=== PATIENT | female | born 1975 | race Caucasian/White ===

== ENCOUNTER 2016-07-30 23:10 | Inpatient (IN) | payer MEDICAID, OTHER ==
[~2016-07-30] VITALS: Ht 152.4 cm; Wt 80.8 kg
[2016-07-30 23:41] VITALS: Ht 152.4 cm; Wt 80.8 kg
[2016-07-30 23:42] VITALS: BP 102/64; PULSE 97; RESP 18
[2016-07-30] MEDS ORDERED: PREN-93 PO (23:44)
[2016-07-30] MEDS ORDERED: LACTATED RINGER'S 1,000 ML IV PRN (23:52)
[2016-07-31] MEDS ORDERED: BUTORPHANOL 2 MG INJ IV PRN ×2
[2016-07-31] MEDS ORDERED: METHYLERGONOVINE 0.2 MG INJ IM PRN
[2016-07-31] MEDS ORDERED: LIDOCAINE 1% (MPF) 30 ML INJ INJ PRN
[2016-07-31] MEDS ORDERED: CARBOPROST 250 MCG INJ IM PRN
[2016-07-31] MEDS ORDERED: OXYTOCIN 30 UNITS/LR 500 ML IV SCH
[2016-07-31] MEDS ORDERED: AMPICILLIN 2 GM/NS (PMX) 100 ML IV ONE
[2016-07-31] MEDS ORDERED: MISOPROSTOL 200 MCG TAB PR PRN
--- NOTE | 2016-07-31 00:26 | HP ---
Date/Time of Note Date/Time of Note DATE: 07/31/16 TIME: 00:23 OB - History Hx of Present Free Text/Dictation 40 yo P4 @ 36+ wks presents in active labor w SROM good FM, no VB, +ctx, +LOF Past Family/Social History * Past Medical, Surgical, Family and Obstetric Histories reviewed from chart. OB Admission Exam Vital Signs Vital Signs Vital Signs Date Time Temp Pulse Resp B/P Pulse Ox O2 Delivery O2 Flow Rate FiO2 07/30/16 23:42 98.8 97 18 102/64 Room Air Physical Exam HEENT: WNL Cervical Dilatation: 5cm Effacement: 75% Station: -2 Membranes: Ruptured Amniotic Fluid: Clear Accelerations: Accelerations Present Decelerations: No Decelerations Varibility: Moderate Contractions on Admission: < 5 Minutes Apart Intensity: Moderate OB Assessment/Plan Other Assessment: 40 yo P4 @ term, w 4 prior , in active labor w SROM - care was w Dr. Warren, but pre- record unavailable on admission - reassuring status -gbs uknown Other plan: admit to L&D amp for uknown GBS, pre-term anticipate CA MONTELONGO MD July 31, 2016 00:26
[2016-07-31] MEDS: LACTATED RINGER'S 1,000 ML IV SCH ×2 (00:28→07:44)
[2016-07-31 00:57] LABS: ADD SCAN DIFF NO
[2016-07-31 01:03] LABS: BASOPHILS % 0.2 % (0.0-2.0); EOSINOPHILS % 0.2 % (0.0-7.0); HEMATOCRIT 40.3 % (37.0-47.0); HEMOGLOBIN 13.3 g/dl (12.0-16.0); LYMPHOCYTES # 1.5 10^3/ul (0.8-2.9); LYMPHOCYTES % 11.9 % (15.0-51.0); MEAN CORPUSCULAR HEMOGLOBIN 29.4 pg (29.0-33.0); MEAN PLATELET VOLUME 12.3 fl (7.4-10.4); MONOCYTE # 0.6 10^3/ul (0.3-0.9); MONOCYTES % 4.5 % (0.0-11.0); NEUTROPHIL # 10.3 10^3/ul (1.6-7.5); NEUTROPHILS % 82.9 % (39.0-77.0); PLATELET COUNT 178 10^3/UL (140-415); RED BLOOD COUNT 4.53 10^6/ul (4.20-5.40); RED CELL DISTRIBUTION WIDTH 14.3 % (11.5-14.5); WHITE BLOOD COUNT 12.5 10^3/ul (4.8-10.8)
[2016-07-31 01:19] LABS: ADD UMIC YES; URINE BILIRUBIN (Dip) NEGATIVE (NEGATIVE); URINE BLOOD (Dip) 2+ (NEGATIVE); URINE COLOR LT. YELLOW (YELLOW); URINE GLUCOSE (Dip) NEGATIVE (NEGATIVE); URINE KETONES (Dip) NEGATIVE (NEGATIVE); URINE LEUKOCYTE ESTERASE (Dip) 1+ (NEGATIVE); URINE NITRITE (Dip) NEGATIVE (NEGATIVE); URINE TOTAL PROTEIN (Dip) NEGATIVE (NEGATIVE); URINE UROBILINOGEN (Dip) 0.2 E.U./dL (0.1-1.0)
[2016-07-31 01:25] LABS: INR 0.94; PROTIME 12.6 Sec (12.2-14.2)
[2016-07-31 01:26] LABS: PARTIAL THROMBOPLASTIN TIME 29.4 Sec (25.0-35.0)
[2016-07-31 01:33] LABS: ALANINE AMINOTRANSFERASE 27 IU/L (13-69); ALBUMIN 3.4 g/dl (3.3-4.9); ALBUMIN/GLOBULIN RATIO 0.89; ALKALINE PHOSPHATASE 562 IU/L (42-121); ANION GAP 11 (8-16); ASPARTATE AMINO TRANSFERASE 22 IU/L (15-46); BILIRUBIN,INDIRECT 0.3 mg/dl (0-1.1); BILIRUBIN,TOTAL 0.3 mg/dl (0.2-1.3); BLOOD UREA NITROGEN 11 mg/dl (7-20); CALCIUM 8.8 mg/dl (8.4-10.2); CARBON DIOXIDE 21 mmol/L (21-31); CHLORIDE 105 mmol/L (97-110); CREATININE 0.47 mg/dl (0.44-1.00); GLUCOSE 90 mg/dl (70-220); POTASSIUM 4.1 mmol/L (3.5-5.1); SODIUM 133 mmol/L (135-144); TOTAL PROTEIN 7.2 g/dl (6.1-8.1)
[2016-07-31] MEDS: LACTATED RINGER'S 1,000 ML IV* SCH ×2 (01:49→09:49)
--- NOTE | 2016-07-31 01:49 | LDN ---
Date/Time of Note Date/Time of Note DATE: 07/31/16 TIME: 01:19 Delivery Summary 40 yo P4 s/p of live female , 7lbs 3 oz, 9/9 no nuchal cord intact perineum placenta delivered spontaneously Weeks of Gestation 37 Placenta Delivered: Spontaneously Episiotomy: No Anesthesia type: None Estimated blood loss: 400 Sponge & Needle done & correct: Yes All needle counts correct: Yes Any foreign bodies felt in the: No Problems: CA MONTELONGO MD July 31, 2016 01:49
--- NOTE | 2016-07-31 01:52 | RADRPT ---
PROCEDURE: ULTRASOUND OBSTETRICAL CLINICAL INDICATION: 40 year-old female with contractions for a position. TECHNIQUE: Multiple sonographic images of the pelvis were obtained. The images were reviewed on a PACS workstation. COMPARISON: No prior studies are available for comparison. FINDINGS: The cervix is not well visualized. There is a single viable intrauterine gestation. Cardiac activit y is present with 141 beats per minute. There is a vertex presentation. The placenta is posterior. T here is no evidence for an abruption or placenta previa. IMPRESSION: Single viable intrauterine gestation with vertex presentation. .Chaka Hussein MD, Date Time Electronically viewed and signed by .Chaka Hussein MD, on 07/31/2016 01:52 .Marcelo/
[2016-07-31] MEDS ORDERED: LANOLIN 7 GM TUBE TOP PRN (02:00)
[2016-07-31] MEDS ORDERED: WITCH HAZEL/GLYCERIN PAD PR PRN (02:00)
[2016-07-31] MEDS ORDERED: OXYTOCIN 30 UNITS/LR 500 ML IV PRN ×2 (02:00)
[2016-07-31] MEDS ORDERED: DIPHENHYDRAMINE 25 MG CAP PO PRN (02:00)
[2016-07-31 02:05] LABS: BACTERIA,URINE OCCASIONAL; SQUAMOUS EPITHELIAL CELL,UR FEW
[2016-07-31] MEDS: OXYTOCIN 30 UNITS/LR 500 ML IV SCH ×2 (02:34→06:28)
[2016-07-31 03:20] VITALS: BP 140/78; PULSE 72; RESP 20
[2016-07-31] MEDS ORDERED: AMPICILLIN 1 GM/NS (PMX) 50 ML IV SCH (04:00)
[2016-07-31 05:00] VITALS: BP 119/74; PULSE 77; RESP 18
[2016-07-31] MEDS: IBUPROFEN 800 MG TAB PO SCH ×4 (05:05→23:30)
[2016-07-31 08:15] VITALS: BP 118/69; PULSE 68; RESP 18
[2016-07-31] MEDS: SENNA/DOCUSATE NA (8.6MG/50MG) TAB PO SCH ×2 (10:17→21:54)
[2016-07-31 12:53] VITALS: BP 96/58; PULSE 61; RESP 19
[2016-07-31 16:00] VITALS: BP 134/61; PULSE 71; RESP 16
[2016-07-31 20:05] VITALS: BP 113/58; PULSE 72; RESP 18
[2016-08-01 04:10] VITALS: BP 118/65; PULSE 70; RESP 18
[2016-08-01] MEDS: IBUPROFEN 800 MG TAB PO SCH ×3 (05:15→17:47)
[2016-08-01 08:00] VITALS: BP 99/50; PULSE 70; RESP 18
[2016-08-01 08:00] LABS: HEMATOCRIT 35.7 % (37.0-47.0); HEMOGLOBIN 11.5 g/dl (12.0-16.0)
[2016-08-01] MEDS: SENNA/DOCUSATE NA (8.6MG/50MG) TAB PO SCH ×2 (09:32→21:00)
[2016-08-01 12:01] LABS: RUBELLA ANTIBODY - IGG <0.90 index
[2016-08-01] MEDS: IBUPROFEN 600 MG TAB PO PRN ×2 (12:12→23:53)
--- NOTE | 2016-08-01 12:27 | PN ---
Date/Time of Note Date/Time of Note DATE: 08/01/16 TIME: 12:24 OB Subjective Subjective Subjective day 1 Afebrile VSs abdomen soft uterus for lochia normal extremity normal, patient had a contaminated urine order to repeat clean-catch urine plan pending results OB Assessment/Plan Plan: Expectant Management EZEKIEL GARCIA MD August 01, 2016 12:27
[2016-08-01 12:42] LABS: ADD UMIC YES; URINE BILIRUBIN (Dip) NEGATIVE (NEGATIVE); URINE BLOOD (Dip) 3+ (NEGATIVE); URINE COLOR LT. YELLOW (YELLOW); URINE GLUCOSE (Dip) NEGATIVE (NEGATIVE); URINE KETONES (Dip) NEGATIVE (NEGATIVE); URINE LEUKOCYTE ESTERASE (Dip) 1+ (NEGATIVE); URINE NITRITE (Dip) NEGATIVE (NEGATIVE); URINE TOTAL PROTEIN (Dip) NEGATIVE (NEGATIVE); URINE UROBILINOGEN (Dip) 0.2 E.U./dL (0.1-1.0)
[2016-08-01 12:52] LABS: BACTERIA,URINE FEW
[2016-08-01 15:35] VITALS: BP 98/63; PULSE 75; RESP 16
[2016-08-01 20:00] VITALS: BP 119/57; PULSE 74; RESP 20
[2016-08-02] MEDS: IBUPROFEN 800 MG TAB PO SCH ×3 (00:15→12:16)
[2016-08-02 04:13] VITALS: BP 111/72; PULSE 72; RESP 20
[2016-08-02 07:45] VITALS: BP 128/64; PULSE 78; RESP 18
[2016-08-02] MEDS: SENNA/DOCUSATE NA (8.6MG/50MG) TAB PO SCH (09:36)
--- NOTE | 2016-08-02 10:11 | PD.PPDC ---
MANAGER MUSIC Discharge Instruction Condition Patient Condition: Good Diet Diet: Resume Regular Diet Activity/Restrictions Activity: Normal Activity May Shower Restrictions: No Exercising No Lifting No Driving No Sexual Activity Nothing in the Vagina No 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
--- NOTE | 2016-08-02 10:13 | DS ---
Date/Time of Note Date/Time of Note DATE: 08/02/16 TIME: 10:12 Discharge Summary Admission/Discharge Info Admit Date/Time July 30, 2016 at 23:57 Discharge Date/Time August 02, 2016 at 10 AM Final Diagnosis Post normal vaginal delivery Patient Condition: Good Procedures Normal spontaneous vaginal delivery Hx of Present Illness Term Hospital Course Uneventful satisfactory Home Meds Reported Medications Vit No.124/Iron/FA ( Vitamin Tablet) 1 Each Tablet, 1 EACH PO, TAB 07/30/16 Follow-up Plan instructions given recommended appointment in 2 weeks to be seen at the office Pending Labs Laboratory Tests Test 08/01/16 12:10 Urine Color LT. YELLOW (YELLOW) Urine Clarity CLEAR (CLEAR) Urine pH 6.5 (5.0-9.0) Urine Specific [place] <=1.005 (1.003-1.030) Urine Ketones NEGATIVE (NEGATIVE) Urine Nitrite NEGATIVE (NEGATIVE) Urine Bilirubin NEGATIVE (NEGATIVE) Urine Urobilinogen 0.2 E.U./dL (0.1-1.0) Urine Leukocyte Esterase 1+ (NEGATIVE) Urine Microscopic RBC 10-25/HPF (0) Urine Microscopic WBC 2-5/HPF (0) Urine Epithelial Cells FEW Urine Bacteria FEW Urine Hemoglobin 3+ (NEGATIVE) Urine Glucose NEGATIVE% (NEGATIVE) Urine Total Protein NEGATIVE (NEGATIVE) EZEKIEL GARCIA MD August 02, 2016 10:13
== END 2016-08-02 16:08 | disposition home or self-care (01) | DRG 775 ==
LOC: L-D 23:10 → OBT 23:10 → L-D 23:57 → PP1 07-31 03:05
PROVIDERS: ADMIT Obstetrics & Gynecology; ATTEND Obstetrics & Gynecology
PROC: 10E0XZZ Delivery of Products of Conception, External Approach (ICD-10-PCS; principal; 2016-07-31)
DX: O60.14X0 Preterm labor third trimester with preterm delivery third trimester, not applicable or unspecified (principal); Z37.0 Single live birth; Z3A.36 36 weeks gestation of pregnancy
CPT/HCPCS: 36415; 76815; 80053; 81001; 81003; 85014; 85018; 85025; 85610; 85730; 86592; 86703; 86762; 86900; 86901; 87086; 87340; G0463; J2210; J2590; J7120

== ENCOUNTER 2016-10-28 09:20 | Day surgery (SDC) | payer OTHER ==
[~2016-10-28] VITALS: Ht 153.7 cm; Wt 78.0 kg
[2016-10-28] VITALS (9 sets, daily range): BP systolic 119–138; BP diastolic 56–69; PULSE 68–76; RESP 15–23; Ht 153.7 cm; Wt 78.0 kg
[~2016-10-28 09:20] MED LIST: PREN-93 PO; ROCURONIUM 50 MG INJ ONE; SUCCINYLCHOLINE CHLORIDE 100 MG/5 ML SYG IV ONE
[2016-10-28] MEDS ORDERED: FER325 PO (09:51)
[2016-10-28] MEDS ORDERED: BUPIVACAINE 0.25%/EPI (SDV) 30 ML INJ ONE (12:04)
[2016-10-28] MEDS ORDERED: BUPIVACAINE 0.25%/EPI (SDV) 30 ML INJ INJ ONE (12:15)
[2016-10-28] MEDS ORDERED: METOCLOPRAMIDE 10 MG INJ IV PRN (12:30)
[2016-10-28] MEDS ORDERED: KETOROLAC 30 MG INJ IV PRN (12:30)
[2016-10-28] MEDS ORDERED: FENTAnyl 50 MCG/ML VIAL IV PRN ×5 (12:30→13:30)
[2016-10-28] MEDS ORDERED: TRIMETHOBENZAMIDE 100 MG/ML VIAL IM PRN (12:30)
[2016-10-28] MEDS ORDERED: ONDANSETRON 4 MG INJ IV PRN ×2 (12:30→13:30)
[2016-10-28] MEDS ORDERED: OXYCODONE/ACETAMINOPHEN (5/325) TAB PO PRN ×2 (12:30)
[2016-10-28] MEDS ORDERED: MIDAZOLAM 1 MG/ML 2 ML INJ ONE (12:33)
[2016-10-28] MEDS ORDERED: PROPOFOL 20 ML ONE (12:33)
[2016-10-28] MEDS ORDERED: PHENYLephrine (100 MCG/ML) 5ML SYG ONE (12:33)
[2016-10-28] MEDS ORDERED: LIDOCAINE 2% (SDV) 5 ML INJ ONE (12:33)
[2016-10-28] MEDS ORDERED: FENTAnyl 50 MCG/ML VIAL ONE (12:33)
[2016-10-28] MEDS ORDERED: DEXAMETHASONE 4 MG/ML 1 ML INJ ONE (12:34)
[2016-10-28] MEDS ORDERED: CEFAZOLIN 1 GM INJ ONE (12:34)
[2016-10-28] MEDS ORDERED: FAMOTIDINE 20 MG INJ ONE (12:34)
[2016-10-28] MEDS ORDERED: ONDANSETRON 4 MG INJ ONE (12:34)
[2016-10-28] MEDS ORDERED: ROPIVACAINE 0.5 % 30 ML VIAL ONE (13:26)
[2016-10-28] MEDS ORDERED: DIPHENHYDRAMINE 50 MG INJ IV PRN (13:30)
[2016-10-28] MEDS ORDERED: HYDROmorphONE (0.2 MG/ML) 10ML SYG IV PRN (13:30)
[2016-10-28] MEDS ORDERED: MEPERIDINE 25 MG INJ IV PRN (13:30)
[2016-10-28] MEDS ORDERED: SUGAMMADEX SODIUM 200 MG/2 ML VIAL IV ONE (14:01)
--- NOTE | 2016-10-28 14:14 | QN ---
Documentation Comment Patient may go home tonight or if she is in pain she may stay overnight she can be admitted at [facility] unit or to [facility], she will be discharged aEZEKIEL Bustos MD Oct 28, 2016 14:14
--- NOTE | 2016-10-28 14:21 | OPR ---
Date/Time of Note Date/Time of Note DATE: 10/28/16 TIME: 14:14 Operative Report Free Text/Dictation 41 years old 6 para 4 admitted to the hospital for bilateral tubal ligation Procedure Date: Oct 28, 2016 Preoperative Diagnosis Request for bilateral tubal ligation Postoperative Diagnosis Same as above Operation Performed Minilaparotomy bilateral tubal ligation Under satisfactory general anesthesia patient prepped and draped and placed supine position small 2 inches Pfannenstiel incision was carried to the subcutaneous tissue bleeders brought under control with electrocautery fascia incised to the length of incision rectus muscle divided in midline peritoneum exposed and entered transversely exploration of the normal size uterus normal tubes and ovaries right fallopian tube was identified grasped by a Lopez fimbria and portion of the ampullar segment excised suture material used #0 plain catgut was reinforced with the same suture material specimen submitted to the pathology same procedure performed for the opposite. Sponge needle and instrument reported to be correct. Peritoneum closed with 2-0 chromic catgut fascia. Fascia closed with #0 PDS , subcutaneous tissue approximated and sutured with 2 interrupted 2-0 chromic catgut and skin closed with 3 is 0 Monocryl subcuticular estimated blood loss less than 10 cc at the end of the procedure 20 cc of Marcaine injected under the surgical site patient tolerated procedure well transferred to recovery room in good condition Surgeon: EZEKIEL GARCIA MD Anesthesia Type: general Anesthesiologist: MAXIMINO TOM Estimated Blood Loss: 0 - 10 ml's Transfusion Required: yes Grafts/Implants: none Complications: no Pt Condition Post Procedure: stable EZEKIEL GARCIA MD Oct 28, 2016 14:21
[2016-10-28] MEDS: HYDROmorphONE (0.2 MG/ML) 10ML SYG IV PRN ×3 (14:28→14:57)
== END 2016-10-28 17:10 | disposition home or self-care (01) ==
LOC: SDS 09:20
PROVIDERS: ATTEND Obstetrics & Gynecology
DX: Z30.2 Encounter for sterilization (principal)
CPT/HCPCS: 58600; 84703; 88302; J0690; J1100; J1170; J2250; J2405; J2795; J3010; Z7512; Z7610; J2370; J7999

== ENCOUNTER 2017-08-11 21:49 | Emergency (ER) | END 2017-08-12 02:25 | disposition home or self-care (01) ==